=== PATIENT | male | born 1990 | race Caucasian/White ===

== ENCOUNTER 2021-03-30 14:08 | Emergency (ER) | payer OTHER, SELFPAY ==
[~2021-03-30] VITALS: Ht 172.7 cm; Wt 77.1 kg
--- NOTE | 2021-03-30 14:30 | NUR ---
Patient triaged and placed in waiting room. VSS and patient appears in no acute distress at this time. Accompanied by self , awaiting available bed, and MD notified of need for MSE.
[2021-03-30 14:41] VITALS: BP_SYST 113
--- NOTE | 2021-03-30 20:31 | NUR ---
CALLED FOR BED PLACEMENT. PATIENT NOT IN WAITING ROOM. PATIENT LEFT WITHOUT BEING SEEN
== END 2021-03-30 20:31 | disposition left against medical advice (07) ==
LOC: SED 14:08
DX: M25.551 Pain in right hip (principal); Z53.21 Procedure and treatment not carried out due to patient leaving prior to being seen by health care provider

== ENCOUNTER 2021-04-05 00:05 | Emergency (ER) | payer OTHER, SELFPAY ==
[~2021-04-05] VITALS: Ht 170.2 cm; Wt 77.1 kg
[2021-04-05 00:45] VITALS: BP_SYST 133
--- NOTE | 2021-04-05 00:50 | NUR ---
ER in triage examining patient.
[2021-04-05] MEDS ORDERED: KETOROLAC TROMETHAMINE 60 MG/2 ML VIAL IM ONE (01:00)
--- NOTE | 2021-04-05 01:02 | NUR ---
Patient ambulatory to bed 5
--- NOTE | 2021-04-05 01:10 | NUR ---
Seen and examined by Dr Bell with orders/carried out.
--- NOTE | 2021-04-05 01:22 | NUR ---
To Xray accompanied by [employer].No apparent severe resp distress.
--- NOTE | 2021-04-05 02:11 | NUR ---
Back from Xray in NAD.Medicated w/ Toradol IM as odered/tolertaed well.Reinstructed rest/safety measures.observed.
[2021-04-05] MEDS ORDERED: CYCL10TA24 PO ×2 (02:32→02:37)
[2021-04-05] MEDS ORDERED: NAPR-686 PO ×2 (02:32→02:37)
[2021-04-05] MEDS ORDERED: ACET1TAB23 PO ×2 (02:32→02:37)
--- NOTE | 2021-04-05 03:00 | NUR ---
Pt.asleep.Easily arousable.NAD.Claimed of feeling lesser rt elbow/rt hip/Rt LE pains/Lesser 08/03. informed .VSS.
[2021-04-05 03:25] VITALS: BP_SYST 130
--- NOTE | 2021-04-05 03:25 | NUR ---
Patient given written and verbal discharge instructions and verbalizes understanding. ER MD discussed with patient the results and treatment provided. Patient in stable condition. ID arm band removed. Rx of Naproxen and Flexeril sent to pharmacy of choice by ER MD. Patient educated on pain management and to follow up with PMD. Pain Scale 5/10. Opportunity for questions provided and answered.
--- NOTE | 2021-04-05 03:25 | NUR ---
Seen and reevaluated per with order to d/c.Aftercare instructions given to pt and verbalized understanding.D/c'd home ambulatory in stable condition.
== END 2021-04-05 03:25 | disposition home or self-care (01) ==
LOC: SED 00:05
DX: S20.211A Contusion of right front wall of thorax, initial encounter (principal); S20.224A Contusion of middle back wall of thorax, initial encounter; S30.1XXA Contusion of abdominal wall, initial encounter; Y04.0XXA Assault by unarmed brawl or fight, initial encounter; Y93.89 Activity, other specified; Y92.89 Other specified places as the place of occurrence of the external cause; Y99.8 Other external cause status
CPT/HCPCS: 71046; 71100; 96372; 99284; J1885